=== PATIENT | female | born 1985 ===

== ENCOUNTER 2017-03-29 16:04 | Emergency (ER) | payer BC, OTHER, SELFPAY ==
[2017-03-29 16:29] VITALS: BMI 35.8
[2017-03-29 17:13] LABS: HEMATOCRIT 34.7 % (34.0-47.0); MEAN CORPUSCULAR HEMOGLOBIN 27.8 pg (27.0-31.0); MEAN CORPUSCULAR HGB CONC 33.4 g/dL (33.0-37.0); RED CELL DISTRIBUTION WIDTH 14.1 % (11.5-14.5); WHITE BLOOD COUNT 12.2 K/uL (4.8-10.8)
[2017-03-29 17:20] LABS: MEAN CELL VOLUME 83.1 fl (81.0-99.0)
[2017-03-29 17:32] LABS: ALB/GLOB RATIO 1.3 (1.0-2.1); ALKALINE PHOSPHATASE 128 U/L (38-126); ALT/SGPT 20 U/L (9-52); AST/SGOT 26 U/L (14-36); BILIRUBIN,TOTAL 0.3 mg/dl (0.2-1.3); BLOOD UREA NITROGEN 7 mg/dl (7-17); CALCIUM 9.8 mg/dL (8.4-10.2); CARBON DIOXIDE 20 mmol/L (22-30); CHLORIDE 105 mmol/L (98-107); GFR AFRICAN-AMERICAN > 60; GLUCOSE,RANDOM 128 mg/dL (65-105); POTASSIUM 3.8 MMOL/L (3.6-5.0); SODIUM 134 mmol/l (132-148); TOTAL PROTEIN 6.6 G/DL (6.3-8.2)
[2017-03-29 17:35] LABS: RBC URINE 1 /hpf (0-3); URINE BACTERIA RARE (<OCC); URINE BILIRUBIN NEGATIVE (NEGATIVE); URINE BLOOD NEGATIVE (NEGATIVE); URINE COLOR STRAW (YELLOW); URINE GLUCOSE (UA) NEG (Normal); URINE KETONE NEGATIVE (NEGATIVE); URINE LEUKOCYTE ESTERASE NEG Leu/uL (Negative); URINE PROTEIN NEGATIVE (NEGATIVE); URINE UROBILINOGEN 0.2-1.0 mg/dL (0.2-1.0); WBC URINE 1 /hpf (0-5)
[2017-03-29 19:01] LABS: BASO % 0.4 % (0.0-2.0); EOS # 0.1 K/uL (0.0-0.7); EOS % 0.5 % (0.0-4.0); HEMATOCRIT 34.6 % (34.0-47.0); LYMPH # 1.8 K/uL (1.0-4.3); LYMPH % 15.5 % (20.0-40.0); MEAN CELL VOLUME 82.7 fl (81.0-99.0); MEAN CORPUSCULAR HEMOGLOBIN 27.9 pg (27.0-31.0); MEAN CORPUSCULAR HGB CONC 33.8 g/dL (33.0-37.0); MEAN PLATELET VOLUME 9.4 fl (7.2-11.7); MONO # 0.6 K/uL (0.0-0.8); MONO % 4.8 % (0.0-10.0); NEUT # 9.2 K/uL (1.8-7.0); NEUT % 78.8 % (50.0-75.0); NRBC % 0.1 % (0.0-0.0); RED CELL DISTRIBUTION WIDTH 14.3 % (11.5-14.5); WHITE BLOOD COUNT 11.7 K/uL (4.8-10.8)
--- NOTE | 2017-03-29 19:49 | OBHP ---
Datetime: 03/29/2017 18:39 IP Adm Impression: , intrauterine IP Chief Complaint Other: Dizziness and palpatation IP Admit Plan: Observation/Evaluation Admit Comment, IP Provider: CC: "I have dizziness and palpatations" HPI: 32 YO 33.2 wks IUP (via LMP 08/08/2016) presents to [facility] for dizziness and palpatations . Per patient this is the third time where she had similair presentation. She had it for the first ti me two weeks ago. She was walking when she noticed that her heart started beating really fast and sub sequently she started feeling dizzy and faint. Her next episode was last Friday where she had similai r complains of palpatations followed by dizziness. This afternoon patient went to the mall and was wa lking around for about 30 mins when her heart started beating really fast, and was followed by the fe eling of dizziness and feeling faint. No LOC and pt did not fall. She sat down and came to the ED. Th zabrina episodes ttpically last for few minutes and then resolves. +FM, -LOF, -VG and occasional contract ions but nothing persistant. Denies headache, blurry vision, n/v/d/c, abdominal pain, chest pain, dys pnea. Obhx: 1 2004 (6-8wks) and 1 2013 (8wks?) Gynhx: last pap was 10/2016 ASCUS with + HPV, no hx of STIs PMH: denies SurgHx: bunion surgery SocH: denies use of alcohol, smoking and illicit drugs FH: HTN in mother and father Allergies: NKDA Meds: PNV PE Vitals: stable with tachycardia, asymptomatic Gen: NAD, comfortable Cardio: S1S2 no M/G/R Resp: vesicular breathing b/l abdomen: gravid, NT, BS+ Ext: minimal edema, NT FHR: 150 with moderate variability. catagory I, no contractions noted. Orthostatic BP was measured, supine 126/81 HR 118; sitting 135/76 HR112 and standing 145/84 HR 121 Assessment/Plan: 32 YO 33.2 wks IUP (via LMP 08/08/2016) presents to [facility] for dizziness and palpatations. Pt was assessed in [facility], she continues to have tachycardia ranging from 100-120s, remai ns asymptomatic. CBC, CMP and UA done, significant for wbc of 12.2. -CBC, CMP, UA, appreciated -observe and reassess patient Patient was reassessed, monitor was reactive. Pt is doing well, asymptomatic but continues t o have tachycardia. Her latest temperature was 100.0. Pending cbc with diff. Will have patient go to the ED for further evaluations. Pt seen and assessed with attending, Dr. Barnett. Tosin Mitchell, PGY I obh addendum: Patient seen and examined by me with Dr. Mitchell. The differential shows a neutrophil increase to 7 8.8. To ED for evaluation palpitations and associated syncope. Patient may take Tylenol for elevated temperature Maintain fluid hydration. Return to hospital if fever does not resolve. Pt d/w dr grider. f/u with dr alvarenga in 1wk. Pelvic Type - PN: Adequate Extremities - PN: Normal Abdomen - PN: Normal Back - PN: Not Done Breast - PN: Not Done Lungs - PN: Normal Heart - PN: Normal Thyroid - PN: Normal Neurologic - PN: Normal HEENT - PN: Normal General - PN: Normal FHR - Baseline A Provider: 150 Contraction Comments Provider: none IP Hx Assessment: The History has been Reviewed and is Current Vital Signs Provider: Reviewed IP Chief Complaint: Other NICHD Variability Prov Fetus A: Moderate 6-25bpm NICHD Accel Fetus A IP Provider: 15X15 FHR Category Provider Fetus A: Category I Genitourinary Exam: Not Done DTRs - PN: Normal
--- NOTE | 2017-03-29 20:04 | ED PDOC ---
HPI: General Adult Time Seen by Provider: 03/29/17 19:50 Chief Complaint (Nursing): Palpitations Chief Complaint (Provider): palpitations and dizziness History Per: Patient History/Exam Limitations: no limitations Onset/Duration Of Symptoms: Intermittent Episodes Have you had recent travel within the past 21 days to any of the following countries: [place], [place], [place] or [place]?: No Current Symptoms Are (Timing): Gone Now Additional History Per: Patient Additional Complaint(s): 32 y/o female with no significant medical problems at 33weeks gestation presenting to ED after visit to labor and delivery with complaints of palpitations with associated dizziness. Pt reports she first has one episode of palpitations 2weeks ago, she reported to her [employer] who told her if it happened again he would refer her to cardiology, she did not have another episode until this week then again today. states each episode last 10-15mins then it resolves on its own. with all the episode she was sitting down at home, it started with palpitations then she felt like she could breath then feels dizzy, but once she able to calm herself down she take deep breaths in, it resolves. Denies any associated chest pain, syncope, visual changes. reports she has never had anxiety and never had these episodes before until recently. No other complaints otherwise Past Medical History Vital Signs: Last Vital Signs Temp 98.0 F 03/29/17 21:01 Pulse 108 H 03/29/17 21:01 Resp 17 03/29/17 21:01 BP 114/63 03/29/17 21:01 Pulse Ox 97 03/29/17 21:42 - Family History Family History: States: Unknown Family Hx - Home Medications Home Medications: Ambulatory Orders Medication Instructions Recorded Ibuprofen [Motrin] 600 mg PO Q6 PRN #20 tab 03/31/14 oxyCODONE/Acetaminophen [Percocet 1 - 2 tab PO Q4 PRN #12 tab 03/31/14 5/325 mg Tab] Ibuprofen [Motrin] 400 mg PO Q6 #30 tab 07/23/16 Oseltamivir Phosphate [Tamiflu] 75 mg PO BID #10 capsule 07/23/16 - Allergies Allergies/Adverse Reactions: Allergies Allergy/AdvReac Type Severity Reaction Status Date / Time No Known Allergies Allergy Verified 02/23/15 13:34 Review of Systems ROS Statement: Except As Marked, All Systems Reviewed And Found Negative Physical Exam - Physical Exam Appears: Positive for: Well, No Acute Distress Head Exam: Positive for: NORMOCEPHALIC Skin: Positive for: Normal Color Eye Exam: Positive for: Normal appearance, EOMI, PERRL Cardiovascular/Chest: Positive for: Regular Rate, Rhythm. Negative for: Chest Non Tender, Edema Respiratory: Positive for: Normal Breath Sounds. Negative for: Decreased Breath Sounds, Rales, Wheezing Gastrointestinal/Abdominal: Positive for: Bowel Sounds, Soft. Negative for: Tenderness (gravid abdomen ) Extremity: Positive for: Normal ROM. Negative for: Tenderness, Pedal Edema, Calf Tenderness Neurologic/Psych: Positive for: Alert, assortment planner II-XII, Oriented - Laboratory Results Result Diagrams: 03/29/17 18:50 03/29/17 17:00 - ECG ECG: Positive for: Interpreted By Me ECG Rhythm: Positive for: Sinus Tachycardia O2 Sat by Pulse Oximetry: 97 - Progress ED Course And Treament: Pt was seen in labor and delivery and cleared from obstetrics stand point cbc, cmp and UA and monitoring was already done Will obtain LE dopplers, and have pt follow up with cardiology for further work up Medical Decision Making Medical Decision Making: TSH wnl lower extremity doppler negative will d/c home to follow up with cardiology Disposition - Clinical Impression Clinical Impression: Palpitations - Patient ED Disposition Is Patient to be Admitted: No - Disposition Disposition: Routine/Home Disposition Time: 21:40 Condition: STABLE Additional Instructions: Please make sure to follow up with cardiology as discussed Instructions: Palpitations (ED) Forms: [employer] (American) Print Language: DUTCH
[2017-03-29] MEDS ORDERED: Sodium Chloride 0.9% 1,000 ML IV STA (20:09)
--- NOTE | 2017-03-29 21:35 | US ---
EXAM: US Duplex Bilateral Lower Extremity Veins CLINICAL HISTORY: 32 years old, female; Pain; Other: Legs; Additional info: R/O dvt TECHNIQUE: Real-time ultrasound scan of the veins of the bilateral lower extremities with color Doppler flow, spectral waveform analysis and compression. COMPARISON: No relevant prior studies available. FINDINGS: Real-time imaging shows veins with normal compressibility. Doppler evaluation shows normal venous flow with respiratory variation and augmentation with distal compression. IMPRESSION: No evidence for deep venous thrombosis in the visualized veins.
--- NOTE | 2017-03-31 11:05 | CARD ---
APPROVED REPORT EKG Measurement Heart [id number] <Conclusion> Sinus tachycardia Possible Left atrial enlargement Borderline ECG
[2017-03-31 23:31] VITALS: BP 120/76; PULSE 115; RESP 20; TEMP 98.7; O2SAT 99
== END 2017-03-29 22:04 | disposition home or self-care (01) ==
LOC: H.ER 16:04
DX: R00.2 Palpitations (principal); Z3A.33 33 weeks gestation of pregnancy
CPT/HCPCS: 80053; 81003; 84443; 85025; 85027; 93005; 93970; 99285; J7040

== ENCOUNTER 2017-05-15 17:43 | Inpatient (IN) | payer BC, OTHER ==
[2017-05-15 17:59] VITALS: BMI 36.9
[2017-05-15] MEDS ORDERED: Lactated Ringer's 1,000 ML IV SCH (19:15)
[2017-05-15 19:55] LABS: BASO % 0.2 % (0.0-2.0); EOS % 0.3 % (0.0-4.0); HEMATOCRIT 37.2 % (34.0-47.0); LYMPH # 2.5 K/uL (1.0-4.3); LYMPH % 17.9 % (20.0-40.0); MEAN CELL VOLUME 80.2 fl (81.0-99.0); MEAN CORPUSCULAR HEMOGLOBIN 26.1 pg (27.0-31.0); MEAN CORPUSCULAR HGB CONC 32.5 g/dL (33.0-37.0); MEAN PLATELET VOLUME 9.4 fl (7.2-11.7); MONO # 0.9 K/uL (0.0-0.8); MONO % 6.2 % (0.0-10.0); NEUT # 10.4 K/uL (1.8-7.0); NEUT % 75.4 % (50.0-75.0); RED CELL DISTRIBUTION WIDTH 15.1 % (11.5-14.5); WHITE BLOOD COUNT 13.8 K/uL (4.8-10.8)
[2017-05-15 20:30] LABS: ALB/GLOB RATIO 1.3 (1.0-2.1); ALKALINE PHOSPHATASE 215 U/L (38-126); ALT/SGPT 31 U/L (9-52); AST/SGOT 28 U/L (14-36); BILIRUBIN,TOTAL 0.3 mg/dl (0.2-1.3); BLOOD UREA NITROGEN 10 mg/dl (7-17); CALCIUM 9.3 mg/dL (8.4-10.2); CARBON DIOXIDE 20 mmol/L (22-30); CHLORIDE 104 mmol/L (98-107); GFR AFRICAN-AMERICAN > 60; GLUCOSE,RANDOM 82 mg/dL (65-105); POTASSIUM 3.8 MMOL/L (3.6-5.0); SODIUM 136 mmol/l (132-148); TOTAL PROTEIN 6.8 G/DL (6.3-8.2); URIC ACID 5.3 mg/Dl (2.2-7.5)
[2017-05-16] MEDS: Lactated Ringer's 1,000 ML IV SCH ×4 (11:15→21:38)
[2017-05-16] MEDS ORDERED: Fentanyl/Bupivacaine HCl 250 ML EPI ONE (13:49)
[2017-05-16] MEDS ORDERED: Bupivacaine HCl 0.25% PF (10 ml) Inj ONE (13:49)
[2017-05-16] MEDS ORDERED: Lidocaine 1% Inj (20ml) ONE (20:24)
[2017-05-16] MEDS ORDERED: Oxytocin 30 units/LR 500ML 30 U/500 ML BAG IV ONE (20:36)
[2017-05-16] MEDS ORDERED: Ampicillin 2 GM in Sodium Chloride 0.9% 100 ML IVPB ONE (21:21)
[2017-05-16] MEDS ORDERED: Gentamicin 80 mg/2mL Inj. ONE (21:28)
[2017-05-16] MEDS ORDERED: Gentamicin 80mg/50ml NS 80 MG/50 ML BAG IVPB SCH (21:30)
--- NOTE | 2017-05-16 23:17 | OBDS ---
MATERNAL INFORMATION Delivery Anesthesia: Epidural Provider Comments: Delivered a live baby boy at 10:30 PM the baby was bulb suctioned on the perineum then transferred to the maternal chest. A loose nuchal cord was reduced. The cord was clamped and cu t and 3 vessels noted, cord blood was obtained and sent to the lab. The placenta was delivered at 10: 35 PM intact. The estimated blood loss was 150 mL. There is a second-degree laceration which was repa ired with 2-0 repeat. The mother tolerated the procedure well the patient was baby nursery with s of 9 and 9 weighing 3655 g LABOR SUMMARY EDC: 05/15/2017 00:00 No. Babies in Womb: 1 Attempted: No Labor Anesthesia: Epidural LABOR INFORMATION Onset of Labor: 05/16/2017 12:53 Cervical Ripening Agents: Cervidil (Annotations: as per md order resident Dr. Jimenez inserted medi cation with DR Barnett assistance. Pt tolerated procedure well ) Oxytocin: Induction Group B Beta Strep: Negative Antibiotics # of Doses: 0 Antibiotics Time of Last Dose: 0 Steroids Given: None Reason Steroids Not Administered: Not Applicable MEMBRANES Membranes Rupture Method: Artificial Rupture of Membranes: 05/16/2017 12:53 Amniotic Fluid Color: Heavy Meconium Amniotic Fluid Amount: Large Amniotic Fluid Odor: Normal VAGINAL DELIVERY Episiotomy: None Laceration Extension: Second Degree Laceration Type: Vaginal Sponge Count Correct: Yes Sharps Count Correct: Yes BABY A INFORMATION Born in Route : No : N/A
[2017-05-17] MEDS ORDERED: Oxycodone/Acetaminophen 5/325 mg Tab PO PRN ×2 (03:53)
[2017-05-17] MEDS: Benzocaine/Menthol SPRAY TOP PRN (06:39)
[2017-05-17 07:08] LABS: HEMATOCRIT 31.4 % (34.0-47.0); MEAN CELL VOLUME 79.5 fl (81.0-99.0); MEAN CORPUSCULAR HEMOGLOBIN 26.6 pg (27.0-31.0); MEAN CORPUSCULAR HGB CONC 33.4 g/dL (33.0-37.0); RED CELL DISTRIBUTION WIDTH 15.5 % (11.5-14.5); WHITE BLOOD COUNT 19.6 K/uL (4.8-10.8)
--- NOTE | 2017-05-18 09:40 | OBPPN ---
Datetime: 05/18/2017 09:38 PP Pain Prov: Within normal limits PP Nausea Prov: Denies PP Flatus Prov: Yes PP Breasts Prov: Not Done PP Heart Prov: Normal PP Lungs Prov: Normal PP Abdomen/Uterus Prov: Normal PP Lochia Prov: Not Done PP Vulva/Perineum Prov: Not Done PP CVA Tenderness Prov: Normal PP Extremities Prov: Normal PP Impression Prov: Normal progression PP Progress Note Prov: Patient doing well ambulating and voiding without difficulty reports minimal discomfort minimal lochia Vital signs stable afebrile Uterus firm below the umbilicus Extremities no Homans day #2 Patient cleared for discharge No intercourse No heavy lifting Follow-up in 4-6 weeks Motrin as needed Vital Signs Provider PP: Reviewed
--- NOTE | 2017-05-18 09:42 | OBDCSUM ---
Datetime: 05/18/2017 09:39 Discharged to, Provider: Home Follow up at, Provider: Jack Billings Instr Activity: Normal activity Disch Instr Diet: Regular Discharge Instructions, Provider: Routine instructions given Discharge Diagnosis, Provider: Term Delivered Follow up in weeks, Provider: 6 weeks Disch Referrals: None Contraception discussed, Prov: Yes Disch Activity Restrictions: No sexual activity; Nothing in vagina - Pandora, tampons, douche Discharge Comment, Provider: Patient cleared for discharge Contraception after Delivery: Undecided Datetime: 03/29/2017 19:01 Discharge Diagnosis, Provider: Term Delivered Disch Referrals: None Contraception discussed, Prov: Yes Disch Activity Restrictions: No lifting; No sexual activity; Nothing in vagina - Pandora, tampon s, douche
[2017-05-18] MEDS ORDERED: Influenza Vaccine 18yr & older 0.5 ML/45 MCG SYR IM ONE (12:39)
[2017-05-18] MEDS: Benzocaine/Menthol SPRAY TOP PRN (13:27)
[2017-05-18 21:08] VITALS: BP 123/80; PULSE 112; RESP 18; TEMP 98.8; O2SAT 100
== END 2017-05-18 17:00 | disposition home or self-care (01) | DRG 775 ==
LOC: H.EROB2 17:43 → H.L&D 19:12 → H.OB/GYN 05-17 01:00
PROVIDERS: ADMIT Obstetrics & Gynecology Gynecology; ATTEND Obstetrics & Gynecology Gynecology
PROC: 4A1HXCZ Monitoring of Products of Conception, Cardiac Rate, External Approach (ICD-10-PCS; 2017-05-15)
PROC: 0KQM0ZZ Repair Perineum Muscle, Open Approach (ICD-10-PCS; principal; 2017-05-16)
PROC: 10E0XZZ Delivery of Products of Conception, External Approach (ICD-10-PCS; 2017-05-16)
DX: O69.81X0 Labor and delivery complicated by cord around neck, without compression, not applicable or unspecified (principal); O48.0 Post-term pregnancy; O70.1 Second degree perineal laceration during delivery; Z37.0 Single live birth; Z3A.40 40 weeks gestation of pregnancy

== ENCOUNTER 2018-05-01 17:49 | Emergency (ER) | payer OTHER, SELFPAY ==
[2018-05-01 17:52] VITALS: BMI 36.9
--- NOTE | 2018-05-01 18:24 | ED PDOC ---
HPI: Abdomen Time Seen by Provider: 05/01/18 18:06 Chief Complaint (Nursing): Abdominal Pain Chief Complaint (Provider): abdominal pain History Per: Patient History/Exam Limitations: no limitations Onset/Duration Of Symptoms: Days (x4) Current Symptoms Are (Timing): Still Present Location Of Pain/Discomfort: Other (left sided) Associated Symptoms: Nausea. denies: Urinary Symptoms Additional Complaint(s): Gena Gomez is a 33 year old female, with no significant past medical history, who presents to the emergency department complaining of left sided abdominal pain and left flank pain onset for x4 days. Patient states she has not had movement yet in this . She denies any vaginal bleeding or dysuria. No further medical complaints. PMD: Le Warner Past Medical History Reviewed: Historical Data, Nursing Documentation, Vital Signs Vital Signs: Last Vital Signs Temp 98.5 F 05/01/18 17:56 Pulse 103 H 05/01/18 17:56 Resp 16 05/01/18 17:56 BP 125/83 05/01/18 17:56 Pulse Ox 99 05/01/18 17:56 - Medical History PMH: No Chronic Diseases Denies: Depression, Diabetes, HTN - Surgical History Surgical History: No Surg Hx - Family History Family History: States: Unknown Family Hx - Home Medications Home Medications: Ambulatory Orders Medication Instructions Recorded Vit No.126/Iron/Folic 1 tab PO DAILY 05/15/17 [Prenavite] - Allergies Allergies/Adverse Reactions: Allergies Allergy/AdvReac Type Severity Reaction Status Date / Time No Known Allergies Allergy Verified 05/15/17 17:59 Review of Systems ROS Statement: Except As Marked, All Systems Reviewed And Found Negative Gastrointestinal: Positive for: Abdominal Pain (left sided), Other (left flank pain) Genitourinary Female: Negative for: Dysuria, Vaginal Bleeding Physical Exam - Reviewed Nursing Documentation Reviewed: Yes Vital Signs Reviewed: Yes - Physical Exam Appears: Positive for: No Acute Distress Head Exam: Positive for: ATRAUMATIC, NORMOCEPHALIC Skin: Positive for: Normal Color, Warm, Dry Eye Exam: Positive for: Normal appearance, EOMI, PERRL Neck: Positive for: Painless ROM Cardiovascular/Chest: Positive for: Regular Rate, Rhythm. Negative for: Murmur Respiratory: Positive for: Normal Breath Sounds. Negative for: Respiratory Distress Gastrointestinal/Abdominal: Positive for: Normal Exam, Soft, Other (Fundus palpated at umbilicus). Negative for: Tenderness Back: Positive for: Normal Inspection. Negative for: L CVA Tenderness, R CVA Tenderness, Vertebral Tenderness Extremity: Positive for: Normal ROM (upper and lower extremities). Negative for: Deformity, Swelling Neurologic/Psych: Positive for: Alert, Oriented - ECG O2 Sat by Pulse Oximetry: 99 (RA) Pulse Ox Interpretation: Normal Medical Decision Making Medical Decision Making: Time: 18:06 Initial Plan: --Urinalysis --OB , Limited [US] --Reevaluation ----- Scribe Attestation: Documented by Kaz Cobian, acting as a scribe for Matti Sorensen MD. Provider Scribe Attestation: All medical record entries made by the Scribe were at my direction and personally dictated by me. I have reviewed the chart and agree that the record accurately reflects my personal performance of the history, physical exam, medical decision making, and the department course for this patient. I have also personally directed, reviewed, and agree with the discharge instructions and disposition. Disposition - Clinical Impression Clinical Impression: Abdominal pain during - Patient ED Disposition Is Patient to be Admitted: Transfer of Care - Disposition Disposition: Transfer of Care Disposition Time: 19:00 Condition: FAIR Forms: Editorially (Setswana) Patient Signed Over To: Alex York
[2018-05-01 19:41] LABS: SQUAMOUS EPITHIAL 2 /hpf (0-5); URINE BACTERIA RARE (<OCC); URINE BILIRUBIN NEGATIVE (NEGATIVE); URINE BLOOD NEGATIVE (NEGATIVE); URINE CLARITY SLIGHTY-CLOUDY (Clear); URINE COLOR COLORLESS (YELLOW); URINE GLUCOSE (UA) NEG (Normal); URINE LEUKOCYTE ESTERASE NEG Leu/uL (Negative); URINE PROTEIN NEGATIVE (NEGATIVE); URINE UROBILINOGEN 0.2-1.0 mg/dL (0.2-1.0)
--- NOTE | 2018-05-01 19:52 | ED PDOC ---
- ECG O2 Sat by Pulse Oximetry: 99 (RA) Medical Decision Making Medical Decision Makin:00 -Patient endorsed to provider by Dr. Sorensen, pending ultrasound. 21:30 --Ultrasound shows normal IUP --Advised patient that she likely has round ligament pain --Advised patient to take APA for pain --STrongly advised to followup with Dr. Warner on Friday --Very well appearing with normal vitals upon discharge Disposition - Clinical Impression Clinical Impression: Abdominal pain during - POA Present On Arrival: None - Disposition Referrals: Le Warner MD [Family Provider] - Disposition: Routine/Home Disposition Time: 21:30 Condition: FAIR Instructions: Round Ligament Pain Forms: [facility] (Croatian), [facility] ED School/Work Excuse
[2018-05-01 21:30] VITALS: BP 123/73; PULSE 89; RESP 17; TEMP 98.5
[2018-05-02 04:50] VITALS: O2SAT 99
--- NOTE | 2018-05-02 08:33 | US ---
Date of service: 05/01/2018 PROCEDURE: OB Pelvic Ultrasound HISTORY: Left sided pain COMPARISON: None available. FINDINGS: UTERUS: Placenta: Posterior Presentation: Variable BPD: 4.4 cm compatible with estimated gestational age of 19 weeks, 1 day HC: 15.9 cm compatible with estimated gestational age of 18 weeks, 5 days AC: 13.2 cm compatible with estimated gestational age of 18 weeks, Heart rate: 5 days FL: 2.8 cm compatible with estimated gestational age of 18 weeks, 5 days heart rate: 142 bpm. age (Ultrasound estimated): 18 weeks, 6 days Paty-gestational hemorrhage: None. Date of delivery (Ultrasound estimated) : 09/26/2018 EFW 254.6 grams +/-38.2 grams (9 ounces +/-1 ounce) CERVIX: Measures 7.7 cm. Long and closed. No cervical abnormality seen. FREE FLUID: None. OTHER FINDINGS: None. IMPRESSION: Single live intrauterine gestation with average ultrasound age of 18 weeks, 6 days. heart rate 142 beats per minute. Cervix long and closed.
== END 2018-05-01 21:34 | disposition home or self-care (01) ==
LOC: H.ER 17:49
DX: O26.892 Other specified pregnancy related conditions, second trimester (principal); Z3A.18 18 weeks gestation of pregnancy

== ENCOUNTER 2018-09-01 11:53 | Emergency (ER) | payer OTHER ==
[2018-09-01 12:37] VITALS: BMI 40.2
--- NOTE | 2018-09-01 13:30 | OBHP ---
Datetime: 09/01/2018 12:17 IP Adm Impression: , intrauterine ; No Active Labor IP Admit Plan: Observation/Evaluation; Discharge home Admit Comment, IP Provider: 33 y/o female w/ hx of GDM on metformin 500mg PO BID at 36.2 wk GA presents to [facility] c/o vaginal spotting less than menses that started this morning. She denies VFL, endorses movement. She was last sexually active weeks ago. She denies vaginal discharge, urinar y symptoms, n/v, SOB, CP. OB: Dr. Warner Obhx: NVDx1 @40.1wk. Pmhx: denies HomeRx: Metformin 500mg PO BID, vitamins SocialHx: denies toxic habits Famhx: Mother w/ HTN Allergies: NKDA ROS negative except per HPI Physical Exam: Gen: NAD, lying comfortably in bed Heart: S1 S2 Present, RRR Lungs: normal resp effort, clear to auscultation bilaterally Abd: Gravid, normal BS, Soft, non-tender SVE: (by Dr. Jung) FT, thick, high Extremities: no swelling/erythema/tenderness Assessment and Plan 33 y/o female @ 36.2 wk GA IUP c/o vaginal spotting r/o active labor SVE: FT/thick/high, no sign of active bleeding; not in active labor NST reactive w/ moderate varibaility Patient advised of ER precautions. Patient stable for discharge, and she has a follow up appointme nt w/ Dr. Warner on 09/03/2018. Case discussed w/ attending, Dr. Erich Becker yi Addendum by Dr. Jung Pelvic Type - PN: Adequate Extremities - PN: Normal Abdomen - PN: Normal Back - PN: Normal Breast - PN: Not Done Lungs - PN: Normal Heart - PN: Normal Thyroid - PN: Not Done Neurologic - PN: Not Done HEENT - PN: Not Done General - PN: Normal Presentation-Admit: Vertex FHR - Baseline A Provider: 150 Gestation - Est Wks by US: 36.2 Vital Signs Provider: Reviewed; Within Normal Limits IP Chief Complaint: Vaginal bleeding NICHD Variability Prov Fetus A: Moderate 6-25bpm NICHD Accel Fetus A IP Provider: 15X15 NICHD Decel Fetus A IP Provider: None Dilatation, Provider: FT Effacement, Provider: thick Station, Provider: high Genitourinary Exam: Normal DTRs - PN: Not Done
--- NOTE | 2018-09-01 13:33 | OBDCSUM ---
Datetime: 09/01/2018 12:43 Discharged to, Provider: Home Follow up at, Provider: Dr. Warner Disch Instr Activity: Normal activity Disch Instr Diet: Restricted, specify Discharge Diet restrict Prov: GDM Discharge Time: 09/01/2018 12:45 Follow up in weeks, Provider: 09/03/2018 Disch Referrals: None Discharge Diagnosis Prov Other: false labor
[2018-09-01 17:50] VITALS: BP 108/61; PULSE 106; RESP 18; TEMP 98; O2SAT 100
== END 2018-09-01 12:51 | disposition home or self-care (01) ==
LOC: H.EROB2 11:53 → H.EROB 12:30 → H.EROB2 12:51
DX: O26.853 Spotting complicating pregnancy, third trimester (principal); O47.03 False labor before 37 completed weeks of gestation, third trimester; Z3A.36 36 weeks gestation of pregnancy; Z86.32 Personal history of gestational diabetes

== ENCOUNTER 2018-09-17 20:22 | Inpatient (IN) | payer OTHER ==
[2018-09-17 21:40] VITALS: BMI 38.2
[2018-09-17] MEDS ORDERED: Lactated Ringer's 1,000 ML IV ONE (21:42)
[2018-09-17] MEDS ORDERED: Lactated Ringer's 1,000 ML IV SCH (21:45)
[2018-09-17] MEDS ORDERED: Penicillin G 5 Million Unit Vial IVPB ONE (22:32)
[2018-09-17 22:44] LABS: BASO % 0.3 % (0.0-2.0); EOS % 0.4 % (0.0-4.0); HEMOGLOBIN 11.4 g/dL (12.0-16.0); LYMPH # 2.2 K/uL (1.0-4.3); LYMPH % 21.8 % (20.0-40.0); MEAN CELL VOLUME 78.9 fl (81.0-99.0); MEAN CORPUSCULAR HEMOGLOBIN 26.1 pg (27.0-31.0); MONO # 0.7 K/uL (0.0-0.8); MONO % 7.3 % (0.0-10.0); NEUT % 70.2 % (50.0-75.0); NRBC % 0.1 % (0.0-0.0); RBC 4.37 Mil/uL (3.80-5.20); RED CELL DISTRIBUTION WIDTH 15.8 % (11.5-14.5); WHITE BLOOD COUNT 9.9 K/uL (4.8-10.8)
[2018-09-17 22:56] LABS: ALB/GLOB RATIO 1.3 (1.0-2.1); ALBUMIN 3.7 g/dL (3.5-5.0); ALT/SGPT 22 U/L (9-52); AST/SGOT 34 U/L (14-36); BLOOD UREA NITROGEN 12 mg/dl (7-17); GFR NON-AFRICAN AMERICAN > 60
[2018-09-18] MEDS ORDERED: Nalbuphine 20 mg/ml Inj (10 ml) ONE (04:15)
[2018-09-18] MEDS: Nalbuphine HCL 10 mg/ml Ampule IVP PRN ×2 (04:17→23:11)
--- NOTE | 2018-09-18 08:22 | OBADHP ---
Datetime: 09/17/2018 23:04 Admit Comment, IP Provider: 33-year-old presents at 38.4 for IOL d/t polyhydramnios and GDM. Last U/S 09/14 (3 days prior to induction) ANTONIA 25.1. Patient endorses good movement and admits to some vaginal spotting yesterday which has resolved. She denies loss of fluid or active bleeding fr om vagina. Her GDM is controlled with Metformin BID, AC breakfast glucose range 88-95 daily. Her firs t was NVD induced at 40.1, baby was 8lb 10 oz with no complications. Patient of Dr Whitney Chopra, last seen Thursday 09/14. OBGYN: [facility] PMH: denies - GDM controlled w/Metformin BID Meds: Metformin Surgical Hx: Bunion OBGYN: - 2xSAB, 1xMAB, NVD 2017 induced 40.1 no complications Labs: GBS +, Rubello unknown, remainder WNL ROS: all other systems reviewed and negative unless otherwise noted in HPI. PE: Gen: comfortable, in no acute distress Skin: no rash Ext: no pitting edema Abd: IUP, no tenderness to palpation Resp: no respiratory distress CV: RRR, S1, S2 Pelvic: A+P: 33-year-old presents at 38.4 for IOL d/t polyhydramnios and GDM. -Admit to unit for induction of labor -Continuous EFM -GBS + protocol -CBC, CMP, T_S, Rubella labs -Cervadil 10mg -Monitor for natiral progression of labor -Glucose POC Q2H when labor begins Case seen and discussed with Dr Arnulfo Real PGY1 Pelvic Type - PN: Adequate Extremities - PN: Normal Abdomen - PN: Normal Back - PN: Normal Breast - PN: Not Done Lungs - PN: Normal Heart - PN: Normal Thyroid - PN: Not Done Neurologic - PN: Not Done HEENT - PN: Normal General - PN: Normal FHR - Baseline A Provider: 140 Vital Signs Provider: Reviewed; Within Normal Limits IP Chief Complaint: Signs/Symptoms Gestational HTN NICHD Variability Prov Fetus A: Moderate 6-25bpm NICHD Accel Fetus A IP Provider: 15X15 FHR Category Provider Fetus A: Category I NICHD Decel Fetus A IP Provider: None Genitourinary Exam: Not Done DTRs - PN: Not Done EGA AdmitDate IP: 38.4 IP Adm Impression: Term, intrauterine IP Admit Plan: Admit to unit; Initiate labor induction protocol Datetime: 09/01/2018 12:17 Presentation-Admit: Vertex Gestation - Est Wks by US: 36.2 Dilatation, Provider: FT Effacement, Provider: thick Station, Provider: high
[2018-09-18] MEDS ORDERED: OXYTOCIN/0.9 % NS 20 UNIT/1,000 ML BAG IV SCH (08:30)
[2018-09-18] MEDS ORDERED: Oxytocin 30 UNIT 30 UNITS/500 ML BAG IV ONE (08:30)
--- NOTE | 2018-09-18 22:07 | OBPN ---
Datetime: 09/18/2018 11:30 IP Informed Consent Obtain: Induction of Labor IP Procedures: Sterile Vag Exam IP Progress Plan: Cervical Ripening Membranes, Provider: Intact Contraction Comments Provider: Q5-6 min FHR - Baseline A Provider: 120 Gestation - Est Wks by US: 38.5 Presentation-Admit: Vertex IP Progress Note Comment: Patient resting, denies significant contractions Cervidil was removed, cervix is still closed 1. Blunt score <8, continue with cervical ripening with cytotec 50mcg Q4 2. EFM appropriate 3. Anticipate vaginal delivery 4. Patient does not need accuchecks since she was treated with metformin during her 5. GBS POSITIVE, plan to start prophylaxis once she ruptures or becomes active Orin Broderick MD OB Fellow The patient was seen with the resident I agree with the note Vital Signs Provider: Reviewed; Within Normal Limits NICHD Accel Fetus A IP Provider: 15X15 FHR Category Provider Fetus A: Category I NICHD Variability Prov Fetus A: Moderate 6-25bpm Dilatation, Provider: 0 Effacement, Provider: 20 Station, Provider: -3 NICHD Decel Fetus A IP Provider: None
--- NOTE | 2018-09-18 22:17 | OBPN ---
Datetime: 09/18/2018 22:06 IP Progress Note Comment: Patient doing well reports occasional uterine contraction good movem ent no leakage of fluid heart rate reactive toco irregular uterine contractions Sterile vaginal exam 08/28% -[address] cervical Cervidil for cervical ripening Adequate pelvis Vertex presentation estimated weight 8-8/2 pounds Anticipate normal vaginal delivery
[2018-09-19] MEDS ORDERED: ceFAZolin 2 GM in Sodium Chloride 0.9% 100 ML IVPB ONE (11:14)
[2018-09-19] MEDS ORDERED: Oxytocin 30 UNIT 30 UNITS/500 ML BAG IV ONE (11:48)
[2018-09-19] MEDS ORDERED: Morphine 1 mg/ml preservative-free Inj(Duramorph) ONE (12:13)
[2018-09-19] MEDS ORDERED: Oxycodone/Acetaminophen 5/325 mg Tab PO PRN ×3 (14:10→17:04)
[2018-09-19] MEDS: Lactated Ringer's 1,000 ML IV SCH (17:17)
[2018-09-20] MEDS: Lactated Ringer's 1,000 ML IV SCH (01:17)
[2018-09-20 07:00] LABS: HEMOGLOBIN 9.9 g/dL (12.0-16.0); MEAN CELL VOLUME 78.7 fl (81.0-99.0); MEAN CORPUSCULAR HEMOGLOBIN 25.9 pg (27.0-31.0); MEAN CORPUSCULAR HGB CONC 32.8 g/dL (33.0-37.0); RBC 3.83 Mil/uL (3.80-5.20); RED CELL DISTRIBUTION WIDTH 15.7 % (11.5-14.5); WHITE BLOOD COUNT 11.3 K/uL (4.8-10.8)
[2018-09-20] MEDS: Oxycodone/Acetaminophen 5/325 mg Tab PO PRN (08:47)
[2018-09-20] MEDS: Multivitamin With Minerals Tab PO SCH (08:47)
[2018-09-20] MEDS ORDERED: Multivitamin With Minerals Tab PO SCH (09:00)
--- NOTE | 2018-09-20 13:30 | OBPPN ---
Datetime: 09/20/2018 13:26 PP Pain Prov: Within normal limits PP Nausea Prov: Denies PP Flatus Prov: Yes PP BM Prov: No PP Breasts Prov: Normal PP Heart Prov: Normal PP Lungs Prov: Normal PP Abdomen/Uterus Prov: Normal PP Lochia Prov: Normal PP Vulva/Perineum Prov: Normal PP CVA Tenderness Prov: Normal PP Extremities Prov: Normal PP C/S Incision Prov: Normal PP Progress Prov: Normal PP Comments Phys Exam Prov: Abdomen soft, nontender, nondistended Incision clean, dry, intact Uterus firm, below umbilicus No deep calf tenderness bilaterally PP Impression Prov: Normal progression PP Plan Prov: Continue present management PP Progress Note Prov: Postop day #1 status post , patient recovering well Pain control Postop CBC Bed, ambulate Rodriguez out, void check Regular diet IP PP Procedures: None Vital Signs Provider PP: Reviewed; Within Normal Limits
--- NOTE | 2018-09-21 08:31 | OP ---
PROCEDURE DATE: 09/19/18 PREOPERATIVE DIAGNOSES: Polyhydramnios, gestational diabetes A2, breech presentation. POSTOPERATIVE DIAGNOSES: Polyhydramnios, gestational diabetes A2, breech presentation. OPERATION PERFORMED: Primary low-flap transverse section via Pfannenstiel skin incision. SURGEON: Le Warner MD STUNT DOUBLE: Dr. Orin Broderick. She was helpful in creating exposure, obtaining hemostasis, delivery of the , and closure of the patient. The procedure would not have been possible without her assistance. ANESTHESIA ADMINISTERED BY: Dr. Lama Mcgowan. ANESTHESIA TYPE: Spinal. ESTIMATED BLOOD LOSS: 800 mL. URINE OUTPUT: Rodriguez catheter put out approximately 100 mL of clear urine. INTRAVENOUS FLUID INTAKE: The patient received 1600 mL of D5 LR intraoperatively. OPERATIVE FINDINGS: A female in breech presentation, weighing 3555 g, Apgars 9 and 9. Normal uterus, tubes and ovaries. COMMENTS: The patient presented to the hospital for induction of labor secondary to polyhydramnios and gestational diabetes, 38 weeks. Sonogram revealed vertex presentation. The patient received Cervidil and Cytotec. Upon rupture of membranes, head was noted. Presenting part was determined to be breech. The patient was then notified. Informed consent was obtained. The patient was taken to the operating room for operative delivery. DESCRIPTION OF PROCEDURE: After informed consent was obtained, the patient was taken to the operating room where she was given spinal anesthesia. She was then prepped and draped in a normal sterile fashion with leftward tilt. A Pfannenstiel skin incision was then made with a scalpel and carried down to the underlying layer of fascia. The fascia was nicked in the midline. The fascial incision was then extended laterally with curved Clemente scissors. The superior aspect of the fascial incision was then grasped with Joy clamps, elevated up, and the rectus muscles were dissected off using both sharp and blunt dissection. Attention was then turned to the inferior aspect of the fascial incision, which in a similar fashion was grasped with Joy clamps, elevated up, and the rectus muscles were dissected off using both sharp and blunt dissection. The rectus muscles were then in the midline. The peritoneum was identified and entered sharply with Metzenbaum scissors. The peritoneal incision was then extended superiorly and inferiorly with good visualization of the bladder. The bladder blade was then inserted. The vesicouterine peritoneum was identified and entered sharply with Metzenbaum scissors. The incision was then extended laterally. The bladder flap was created digitally. The bladder blade was then re-adjusted, and a low-transverse incision was made with the scalpel. The incision was then extended laterally with the bandage scissors. The breech was then delivered atraumatically. The nose and mouth were suctioned with the use of a suction trap. The cord was clamped and cut. The infant was handed off to awaiting pediatricians. The placenta was then removed manually. The uterus was exteriorized and cleared of all clots and debris. The uterine incision was repaired with 0 Vicryl in a running-locked fashion. The second layer of the same suture was used to obtain excellent hemostasis. The uterus was returned to the abdomen. The abdomen was then copiously irrigated. The irrigant was removed with the suction device. The gutters were cleared of all clots and debris. The incision was examined and noted to be hemostatic. The peritoneum was closed with a 2-0 Vicryl in a running fashion. The muscles were reapproximated with 0 Vicryl in an interrupted fashion. The fascia was closed with 0 Vicryl in a running fashion. The skin was closed with a 3-0 on a Eleazar needle. All sponge, lap, needle, and instrument counts were correct x2. The patient was taken to the recovery room in awake and stable condition. Le Warner MD
[2018-09-21] MEDS: Multivitamin With Minerals Tab PO SCH (08:45)
--- NOTE | 2018-09-21 08:53 | OBPPN ---
Datetime: 09/21/2018 08:50 PP Pain Prov: Within normal limits PP Nausea Prov: Denies PP Flatus Prov: Yes PP BM Prov: No PP Abdomen/Uterus Prov: Normal PP Lochia Prov: Normal PP C/S Incision Prov: Normal PP Progress Prov: Normal PP Comments Phys Exam Prov: Incision intact w/ steri strips PP Impression Prov: Normal progression PP Plan Prov: Continue present management PP Progress Note Prov: POD 2 s/p c/s for Breech presentation, doing well, breast and bottle feeding Continue current care Vital Signs Provider PP: Reviewed; Within Normal Limits
[2018-09-22] MEDS: Multivitamin With Minerals Tab PO SCH (09:11)
[2018-09-22] MEDS: Oxycodone/Acetaminophen 5/325 mg Tab PO PRN (09:12)
--- NOTE | 2018-09-22 11:44 | OBDCSUM ---
Datetime: 09/22/2018 11:35 Discharged to, Provider: Home Follow up at, Provider: OB Disch Instr Activity: Normal activity Disch Instr Diet: Regular Discharge Instructions, Provider: Routine instructions given Discharge Diagnosis, Provider: Term Delivered Discharge Time: 09/22/2018 11:35 Follow up in weeks, Provider: 1 wk, 6 wks Disch Referrals: None Contraception discussed, Prov: Yes
--- NOTE | 2018-09-22 11:45 | OBPPN ---
Datetime: 09/22/2018 11:34 PP Pain Prov: Within normal limits PP Nausea Prov: Denies PP Flatus Prov: Yes PP Breasts Prov: Normal PP Heart Prov: Normal PP Lungs Prov: Normal PP Abdomen/Uterus Prov: Normal PP Lochia Prov: Normal PP Vulva/Perineum Prov: Normal PP CVA Tenderness Prov: Normal PP Extremities Prov: Normal PP Comments Phys Exam Prov: FUndus firm under umbilicus INcision clean/dry/intact PP Impression Prov: Normal progression PP Plan Prov: Continue present management; Discharge PP Progress Note Prov: patient denies CP, no SOB, no N/V, tolerating PO diet, ambulating/voiding wel l, mild lochia, abdominal pain tolerable with meds, +flatus, +bm A/P POD #3 1. discharge patient home 2. Discharge instructions reviewed IP PP Procedures: None Vital Signs Provider PP: Reviewed; Within Normal Limits
[2018-09-22 18:53] VITALS: BP 108/74; PULSE 69; RESP 20; TEMP 98; O2SAT 98
== END 2018-09-22 14:25 | disposition home or self-care (01) | DRG 788 ==
LOC: H.EROB2 20:22 → H.L&D 21:42 → H.OB/GYN 09-19 16:51
PROVIDERS: ADMIT Obstetrics & Gynecology; ATTEND Obstetrics & Gynecology
PROC: 4A1HXCZ Monitoring of Products of Conception, Cardiac Rate, External Approach (ICD-10-PCS; 2018-09-17)
PROC: 10D00Z1 Extraction of Products of Conception, Low, Open Approach (ICD-10-PCS; principal; 2018-09-19)
DX: O32.1XX0 Maternal care for breech presentation, not applicable or unspecified (principal); O24.429 Gestational diabetes mellitus in childbirth, unspecified control; Z3A.38 38 weeks gestation of pregnancy; Z37.0 Single live birth; O40.9XX0 Polyhydramnios, unspecified trimester, not applicable or unspecified